=== PATIENT | female | born 1995 | race Caucasian/White ===

== ENCOUNTER → 2021-05-22 | Day surgery (SDC) | payer OTHER | LOC: CSHLD/OP 05-21 12:01 | PROVIDERS: ATTEND Obstetrics & Gynecology | DX: Z29.13 Encounter for prophylactic Rho(D) immune globulin (principal); Z88.1 Allergy status to other antibiotic agents; Z88.5 Allergy status to narcotic agent; Z88.8 Allergy status to other drugs, medicaments and biological substances | CPT/HCPCS: 36415; 86900; 86901; 90384; 96372 ==

== ENCOUNTER 2021-05-26 12:45 | Day surgery (SDC) | payer OTHER | END 2021-05-26 13:30 | disposition home or self-care (01) | LOC: CSHSDC 12:45 | PROVIDERS: ATTEND Obstetrics & Gynecology | DX: Z29.13 Encounter for prophylactic Rho(D) immune globulin (principal); Z67.41 Type O blood, Rh negative; Z3A.27 27 weeks gestation of pregnancy; Z88.1 Allergy status to other antibiotic agents; Z88.5 Allergy status to narcotic agent; Z88.8 Allergy status to other drugs, medicaments and biological substances | CPT/HCPCS: 96372 ==

== ENCOUNTER 2021-07-27 01:31 | Day surgery (SDC) | payer OTHER ==
[2021-07-27] MEDS ORDERED: hydrALAZINE 20 MG/ML VIAL SLOW IVP PRN (02:58)
== END 2021-07-27 03:43 | disposition home or self-care (01) ==
LOC: CSHLD/OP 01:31
PROVIDERS: ATTEND Obstetrics & Gynecology
DX: O47.1 False labor at or after 37 completed weeks of gestation (principal); O99.513 Diseases of the respiratory system complicating pregnancy, third trimester; J45.909 Unspecified asthma, uncomplicated; Z3A.37 37 weeks gestation of pregnancy; Z88.1 Allergy status to other antibiotic agents; Z88.5 Allergy status to narcotic agent; Z88.8 Allergy status to other drugs, medicaments and biological substances

== ENCOUNTER 2021-07-27 17:37 | Day surgery (SDC) | payer OTHER ==
[2021-07-27 18:05] VITALS: BMI 27.6
[2021-07-27] MEDS ORDERED: hydrALAZINE 20 MG/ML VIAL SLOW IVP PRN (19:19)
== END 2021-07-27 19:30 | disposition home or self-care (01) ==
LOC: CSHLD/OP 17:37
PROVIDERS: ATTEND Obstetrics & Gynecology
DX: O47.1 False labor at or after 37 completed weeks of gestation (principal); O99.513 Diseases of the respiratory system complicating pregnancy, third trimester; J45.909 Unspecified asthma, uncomplicated; Z3A.37 37 weeks gestation of pregnancy; Z88.1 Allergy status to other antibiotic agents; Z88.5 Allergy status to narcotic agent; Z88.8 Allergy status to other drugs, medicaments and biological substances
CPT/HCPCS: 99282

== ENCOUNTER 2021-08-09 07:11 | Inpatient (IN) | payer OTHER ==
[2021-08-09] MEDS ORDERED: Ondansetron PF 4 MG/2 ML Vial IVP PRN ×3 (07:35→09:35)
[2021-08-09] MEDS ORDERED: Carboprost 250 MCG/ML AMP IM PRN (07:35)
[2021-08-09] MEDS ORDERED: Methylergonovine 0.2 MG/ML VIAL IM PRN (07:35)
[2021-08-09] MEDS ORDERED: Misoprostol 200 MCG TAB PR PRN (07:35)
[2021-08-09] MEDS ORDERED: Ibuprofen 800 MG TAB PO PRN (07:35)
[2021-08-09] MEDS ORDERED: Lidocaine 1% (PF) 30 ML VIAL SC PRN (07:35)
[2021-08-09] MEDS ORDERED: Promethazine HCl 25 MG/ML VIAL IM PRN ×2 (07:35→08:29)
[2021-08-09] MEDS ORDERED: hydrALAZINE 20 MG/ML VIAL SLOW IVP PRN ×2 (07:35→09:35)
[2021-08-09] MEDS: Lactated Ringer's 1,000 ML IV SCH ×3 (07:41→15:11)
[2021-08-09] MEDS ORDERED: NS w/ Oxytocin 30 units 500 ML IV SCH ×2 (07:45→09:45)
[2021-08-09] MEDS ORDERED: Azithromycin 500 MG VIAL ONE (07:50)
[2021-08-09] MEDS ORDERED: Clindamycin/D5W 900 mg/50 ml Premix Bag ONE (07:50)
[2021-08-09 07:56] VITALS: BMI 27.4
[2021-08-09] MEDS ORDERED: Fentanyl 2 mcg/Bup 0.1% Cadd 100 ML ONE (07:58)
[2021-08-09] MEDS ORDERED: ePHEDrine Sulfate 50 MG/10 ML VIAL ONE (08:00)
[2021-08-09] MEDS ORDERED: Bupivacaine/Epinephrine 0.25% 30 ML VIAL ONE (08:00)
[2021-08-09] MEDS ORDERED: Acetaminophen 325 MG TAB PO PRN (08:29)
[2021-08-09] MEDS ORDERED: Naloxone HCl 0.4 mg/ml Vial IVP PRN ×2 (08:29)
[2021-08-09] MEDS ORDERED: ePHEDrine Sulfate 50 MG/10 ML VIAL SLOW IVP PRN (08:29)
[2021-08-09] MEDS ORDERED: Lactated Ringer's 500 ML IV PRN (08:29)
[2021-08-09] MEDS ORDERED: diphenhydrAMINE 50 MG/ML VIAL IVP PRN (08:29)
[2021-08-09] MEDS ORDERED: Moisturizing Cream (Eucerin) 113 GM JAR TOP PRN (08:29)
[2021-08-09] MEDS ORDERED: Fentanyl 2 mcg/Bupivacaine 0.1% Cassette 100 ML EPIDURAL SCH (08:30)
[2021-08-09] MEDS ORDERED: Communication Order-Pharmacy FS SCH (08:30)
[2021-08-09 08:35] LABS: Hemoglobin 10.9 g/dL (12.0-15.5); Mean Corpuscular HGB CONC 31.9 g/dL (32.0-36.0); Mean Corpuscular Hemoglobin 27.7 pg (27.0-33.0); Platelet Count 214 10x3/uL (150-450); RBC Distribution Width 14.2 % (11.5-14.5); Red Blood Cell (RBC) Count 3.93 10x6/uL (3.90-5.03); White Blood Cell (WBC) Count 6.4 10x3/uL (3.5-10.5)
[2021-08-09 09:14] LABS: Syphilis Antibody Nonreactive (Nonreactive); Syphilis Antibody Index 0.05 S/CO (<1.00 Non-Reactive)
[2021-08-09 09:16] LABS: Hep B Surf Ag Non-Reactive S/CO (NonReactive)
[2021-08-09] MEDS ORDERED: traMADol HCl 50 MG TAB PO PRN (09:35)
[2021-08-09] MEDS ORDERED: Preparation H Ointment 28 GM TUBE PR PRN (09:35)
[2021-08-09] MEDS ORDERED: Milk Of Magnesia 30 ML UDCUP PO PRN (09:35)
[2021-08-09] MEDS ORDERED: Bisacodyl 10 MG SUPP PR PRN (09:35)
[2021-08-09] MEDS ORDERED: diphenhydrAMINE 25 MG CAP PO PRN (09:35)
[2021-08-09] MEDS ORDERED: Misoprostol 200 MCG TAB VAG PRN (09:35)
[2021-08-09] MEDS ORDERED: Boostrix 0.5 ML (Tdap) VIAL IM ONE (09:35)
[2021-08-09] MEDS ORDERED: Zolpidem Tartrate 5 MG TAB PO PRN (09:35)
[2021-08-09] MEDS ORDERED: Benzocaine-Menthol 82.5 ML CAN TOP PRN (09:35)
[2021-08-09] MEDS ORDERED: Lanolin Ointment 7 GM TUBE TOP PRN (09:35)
[2021-08-09 10:36] LABS: HBSAg Index 0.22 S/CO (0-0.99)
[2021-08-09 11:23] LABS: Amphetamine Not Detected (NotDetected); Barbiturates Screen Not Detected (NotDetected); Benzodiazepine Screen Not Detected (NotDetected); Cocaine Metabolite Screen Not Detected (NotDetected); Methadone Not Detected (NotDetected); Methamphetamine Detected (NotDetected); Opiate Screen Not Detected (NotDetected); Oxycodone Screen Not Detected (NotDetected); Phencyclidine (PCP) Not Detected (NotDetected); THC/Cannabinoid Screen Not Detected (NotDetected); Tricyclic Screen Not Detected (NotDetected)
[2021-08-09 13:00] LABS: HIV (1/2) Antibody/Antigen Non-Reactive (NonReactive); HIV 1/2 INDEX 0.11 S/CO (<1.00)
[2021-08-09] MEDS: Ibuprofen 800 MG TAB PO SCH ×2 (14:14→21:44)
[2021-08-09] MEDS: Ferrous Sulfate 325 MG TAB PO SCH (15:12)
[2021-08-09] MEDS: Docusate 100 MG CAP PO SCH (21:44)
[2021-08-10] MEDS: Lactated Ringer's 1,000 ML IV SCH ×3 (03:26→17:07)
[2021-08-10] MEDS: Ibuprofen 800 MG TAB PO SCH ×3 (04:53→21:32)
[2021-08-10] MEDS: Acetaminophen 325 MG TAB PO PRN (05:00)
[2021-08-10] MEDS: Ferrous Sulfate 325 MG TAB PO SCH ×2 (08:21→17:07)
[2021-08-10] MEDS: Docusate 100 MG CAP PO SCH ×2 (09:22→21:32)
[2021-08-10] MEDS: Prenatal Vitamin 1 TAB PO SCH (09:22)
[2021-08-11] MEDS: Ibuprofen 800 MG TAB PO SCH (05:33)
[2021-08-11] MEDS: Lactated Ringer's 1,000 ML IV SCH ×2 (05:35→07:53)
[2021-08-11 07:41] VITALS: BP 111/66; TEMP 98.1
[2021-08-11] MEDS: Ferrous Sulfate 325 MG TAB PO SCH (08:09)
[2021-08-11] MEDS: Prenatal Vitamin 1 TAB PO SCH (10:42)
[2021-08-11] MEDS: Docusate 100 MG CAP PO SCH (10:42)
[2021-08-11] MEDS: Acetaminophen 325 MG TAB PO PRN (11:45)
== END 2021-08-11 14:10 | disposition home or self-care (01) | DRG 807 ==
LOC: CSHLD/OP 07:11 → CSHLD 10:03 → CSHPP 12:00
PROVIDERS: ADMIT Obstetrics & Gynecology; ATTEND Obstetrics & Gynecology
PROC: 10E0XZZ Delivery of Products of Conception, External Approach (ICD-10-PCS; principal; 2021-08-09)
PROC: 3E0334Z Introduction of Serum, Toxoid and Vaccine into Peripheral Vein, Percutaneous Approach (ICD-10-PCS; 2021-08-09)
PROC: 10907ZC Drainage of Amniotic Fluid, Therapeutic from Products of Conception, Via Natural or Artificial Opening (ICD-10-PCS; 2021-08-09)
DX: O26.893 Other specified pregnancy related conditions, third trimester (principal); Z37.0 Single live birth; Z67.41 Type O blood, Rh negative; Z88.8 Allergy status to other drugs, medicaments and biological substances; Z88.6 Allergy status to analgesic agent; Z3A.39 39 weeks gestation of pregnancy; O76 Abnormality in fetal heart rate and rhythm complicating labor and delivery
CPT/HCPCS: 51701; 80306; 85027; 85461; 86780; 86850; 86900; 86901; 87340; 87389; 90384; 90715; 96372; 99285; J0456; J2001; J2590; J3490